=== PATIENT | male | born 1945 | race Caucasian/White ===

== ENCOUNTER 2022-06-18 15:42 | Emergency (ER) | payer OTHER ==
[~2022-06-18] VITALS: Ht 165.1 cm; Wt 95.3 kg
[2022-06-18] MEDS ORDERED: JANUVIA100 MG PO (15:47)
[2022-06-18] MEDS ORDERED: CANDESARTAN CIL32 MG PO (15:47)
[2022-06-18] MEDS ORDERED: METFORMIN HCL1000 M3 PO (15:48)
[2022-06-18] MEDS ORDERED: GLIPIZIDE10 MG PO (15:48)
[2022-06-18] MEDS ORDERED: NORVASC2.5 M1 PO (15:48)
[2022-06-18] MEDS ORDERED: TRILIPIX45 MG PO (15:49)
[2022-06-18] MEDS ORDERED: SYNTHROID50 MCG PO (15:49)
== END 2022-06-18 20:02 | disposition home or self-care (01) ==
LOC: ER 15:42
DX: T17.208A Unspecified foreign body in pharynx causing other injury, initial encounter (principal); R07.0 Pain in throat